=== PATIENT | female | born 1990 | race Caucasian/White ===

== ENCOUNTER 2019-07-02 14:49 | Emergency (ER) | payer MEDICAID ==
[~2019-07-02] VITALS: Ht 167.6 cm; Wt 104.8 kg
[2019-07-02 15:32] VITALS: BP 147/85
--- NOTE | 2019-07-02 15:50 | NUR ---
Pt wheeled to room by family. Pt alert and oriented. Pt reports injuring her knee several weeks ago adn reports increased pain and swelling. No obvious deformity or swelling noted.
[2019-07-02] MEDS ORDERED: IBUPROFEN 800 MG TABLET PO ONE (16:10)
[2019-07-02] MEDS ORDERED: HYDROcodone/APAP 5/325 TABLET PO ONE (16:10)
[2019-07-02] MEDS ORDERED: HYDROcodone/APAP 5/325 TABLET ONE (16:19)
[2019-07-02] MEDS ORDERED: IBUPROFEN 200 MG TABLET ONE (16:20)
--- NOTE | 2019-07-02 16:27 | NUR ---
Pt medicated per SEP. Pt and family educated on use of narcotic and non-narcotic pain medications for home use.
--- NOTE | 2019-07-02 17:11 | NUR ---
Pt d/c'd to home care. Pt able to use crutches at time of d/c. Pt edcuated on crutches, knee brace, and medications. Pt VU. Pt ambulated out of ER.
== END 2019-07-02 17:10 | disposition home or self-care (01) ==
LOC: ED 16:55
DX: S83.91XA Sprain of unspecified site of right knee, initial encounter (principal); M76.51 Patellar tendinitis, right knee; Z87.19 Personal history of other diseases of the digestive system; Z88.8 Allergy status to other drugs, medicaments and biological substances; X58.XXXA Exposure to other specified factors, initial encounter; Y93.89 Activity, other specified; Y92.89 Other specified places as the place of occurrence of the external cause; Y99.8 Other external cause status
CPT/HCPCS: 99283